=== PATIENT | female | born 1935 ===

== ENCOUNTER 2022-08-21 07:52 | Inpatient (IN) ==
[2022-08-21] MEDS ORDERED: Albuterol/Ipratropium NEB.SOL (2.5/0.5 MG) 3 ML NEB.SOLN INH ONE (08:29)
[2022-08-21 08:50] LABS: ABS Eosinophils 0.1 10^3/ul (0-0.6); ABS Lymphocytes 0.8 10^3/ul (1.0-4.8); ABS Monocytes 0.5 10^3/ul (0-0.8); ABS Neutrophils 6.8 10^3/ul (1.5-7.7); Hematocrit 41 % (35-47); Hemoglobin 12.8 g/dL (12.0-16.0); Lymphocyte % 9.8 %; Mean Corpuscular HGB Conc 32 g/dL (31-36); Mean Corpuscular Hemoglobin 29 pg (27-31); Mean Corpuscular Volume 90 fL (80-97); Mean Platelet Volume 7.9 fL (7.4-10.4); Platelet Count 272 10^3/uL (150-450); Red Blood Count 4.48 10^6 /uL (3.70-4.87); Red Cell Distribution Width 16 % (10-15); White Blood Count 8.2 10^3/uL (3.5-10.8)
[2022-08-21] MEDS ORDERED: cefTRIAXone 1 gm/50 mL D5W 1 GM/50 ML BAG IV ONE (08:57)
[2022-08-21 09:02] LABS: INR 3.23 (0.88-1.18)
[2022-08-21 09:20] LABS: Albumin 4.1 g/dL (3.2-5.2); Albumin/Globulin Ratio 1.3 (1-3); C Reactive Protein 44.34 mg/L (<8.01); Calcium 9.2 mg/dL (8.6-10.3); Creatinine, Serum 0.95 mg/dL (0.51-0.95); Globulin 3.1 g/dL (2-4); Magnesium 1.9 mg/dL (1.9-2.7); Phosphorus 3.3 mg/dL (2.5-5.0); Potassium 3.9 mmol/L (3.5-5.0); Total Bilirubin 0.5 mg/dL (0.2-1.0); Total Protein 7.2 g/dL (6.4-8.9)
[2022-08-21] MEDS ORDERED: Nitro 2% OINT (Nitroglycerin) 1 INCH/PAK TOPICAL ONE (10:05)
[2022-08-21 10:11] LABS: High Sensitivity Troponin 1 Hr 10 pg/mL (<15)
[2022-08-21 11:26] LABS: Urine Appearance Clear; Urine Bilirubin Negative (Negative); Urine Blood Negative (Negative); Urine Color Straw; Urine Glucose Negative (Negative); Urine Ketones Negative (Negative); Urine Nitrite Negative (Negative); Urine Protein Negative (Negative); Urine Specific Gravity 1.008 (1.002-1.030); Urine Urobilinogen Negative (Negative)
[2022-08-21] MEDS ORDERED: Albuterol HFA INHALER 8 gm MDI INH PRN (13:21)
[2022-08-21] MEDS ORDERED: Warfarin per PHARMACY **NOTE FOLLOW UP SCH (14:00)
[2022-08-21] MEDS ORDERED: Warfarin DAILY REMINDER **NOTE FOLLOW UP SCH (17:00)
[2022-08-21] MEDS ORDERED: Warfarin - No Order Today **NOTE FOLLOW UP ONE (17:00)
[2022-08-22 06:05] LABS: ABS Eosinophils 0.2 10^3/ul (0-0.6); ABS Lymphocytes 1.6 10^3/ul (1.0-4.8); ABS Monocytes 0.6 10^3/ul (0-0.8); ABS Neutrophils 3.6 10^3/ul (1.5-7.7); Eosinophil % 4.1 %; Hematocrit 37 % (35-47); Hemoglobin 11.6 g/dL (12.0-16.0); Lymphocyte % 26.4 %; Mean Corpuscular HGB Conc 31 g/dL (31-36); Mean Corpuscular Hemoglobin 29 pg (27-31); Mean Corpuscular Volume 91 fL (80-97); Mean Platelet Volume 7.5 fL (7.4-10.4); Nucleated Red Blood Cells % 0.1; Platelet Count 218 10^3/uL (150-450); Red Blood Count 4.06 10^6 /uL (3.70-4.87); Red Cell Distribution Width 16 % (10-15)
[2022-08-22 06:18] LABS: INR 3.4 (0.88-1.18)
[2022-08-22 06:44] LABS: Blood Urea Nitrogen 18 mg/dL (6-24); CO2 Carbon Dioxide 26 mmol/L (22-32); Calcium 8.3 mg/dL (8.6-10.3); Chloride 106 mmol/L (101-111); Creatinine, Serum 0.89 mg/dL (0.51-0.95); Glucose 105 mg/dL (70-100); Magnesium 1.9 mg/dL (1.9-2.7); Sodium 138 mmol/L (135-145); eGFR CKD-EPI 62.7 (>60)
[2022-08-22 06:54] LABS: Anion Gap 6 mmol/L (2-11)
[2022-08-22] MEDS: Multivitamins/Minerals TAB PO SCH (08:33)
[2022-08-22] MEDS ORDERED: Magnesium Sulfate IV 1GM/100ML 1 GM/100 ML BAG IV ONE (10:57)
[2022-08-22] MEDS ORDERED: Digoxin IV 0.5 MG/2 ML AMP (0.25 MG/ML) IV SLOW PU ONE ×2 (14:28→20:22)
[2022-08-22] MEDS ORDERED: Potassium Chloride LIQUID 20 MEQ/15 ML LIQUID PO ONE (14:50)
[2022-08-22] MEDS ORDERED: Warfarin - No Order Today **NOTE FOLLOW UP ONE (17:00)
[2022-08-23 06:22] LABS: INR 2.19 (0.88-1.18)
[2022-08-23] MEDS: Multivitamins/Minerals TAB PO SCH (08:11)
[2022-08-23] MEDS ORDERED: Digoxin IV 0.5 MG/2 ML AMP (0.25 MG/ML) IV SLOW PU ONE ×2 (08:34→13:00)
[2022-08-23] MEDS: Enoxaparin 100 MG/ML SYR SUBCUT SCH ×2 (12:37→22:48)
[2022-08-24 05:41] LABS: INR 1.77 (0.88-1.18)
[2022-08-24 05:58] LABS: Calcium 8.4 mg/dL (8.6-10.3); Creatinine, Serum 1.05 mg/dL (0.51-0.95); Potassium 3.4 mmol/L (3.5-5.0); eGFR CKD-EPI 51.4 (>60)
[2022-08-24] MEDS ORDERED: Potassium Chlor 20 meq TAB.ER PO ONE (08:07)
[2022-08-24] MEDS: Multivitamins/Minerals TAB PO SCH (09:15)
[2022-08-24] MEDS: PAIN RELIEVING RUB (MENTHOL/SALICYLATE) 1 APPLIC TUBE TOPICAL PRN ×2 (09:15→20:58)
[2022-08-24] MEDS ORDERED: Digoxin IV 0.5 MG/2 ML AMP (0.25 MG/ML) IV SLOW PU ONE (10:09)
[2022-08-24] MEDS: Enoxaparin 100 MG/ML SYR SUBCUT SCH ×2 (10:44→23:14)
[2022-08-24] MEDS: Pilocarpine 2% OPTH.SOL 15 ML BTL RIGHT EYE SCH ×2 (15:35→20:53)
[2022-08-24] MEDS: TAFLUPROST 0.0015% BOTH EYES SCH (20:57)
[2022-08-24] MEDS ORDERED: Polyethylene Glycol 3350 17 GM PACKET PO PRN (22:42)
[2022-08-25 06:26] LABS: ABS Basophils 0.1 10^3/ul (0-0.2); ABS Eosinophils 0.1 10^3/ul (0-0.6); ABS Lymphocytes 1.5 10^3/ul (1.0-4.8); ABS Neutrophils 6.4 10^3/ul (1.5-7.7); Eosinophil % 1.1 %; Hematocrit 38 % (35-47); Hemoglobin 12.3 g/dL (12.0-16.0); Lymphocyte % 16.1 %; Mean Corpuscular HGB Conc 32 g/dL (31-36); Mean Corpuscular Hemoglobin 29 pg (27-31); Mean Corpuscular Volume 89 fL (80-97); Mean Platelet Volume 7.8 fL (7.4-10.4); Platelet Count 273 10^3/uL (150-450); Red Blood Count 4.27 10^6 /uL (3.70-4.87); Red Cell Distribution Width 15 % (10-15)
[2022-08-25 06:34] LABS: INR 1.49 (0.88-1.18)
[2022-08-25 06:44] LABS: Calcium 8.6 mg/dL (8.6-10.3); Creatinine, Serum 0.98 mg/dL (0.51-0.95); Potassium 3.8 mmol/L (3.5-5.0); eGFR CKD-EPI 55.9 (>60)
[2022-08-25] MEDS ORDERED: Midazolam 5 mg/5 ml VIAL 1 mg/ml 5 ml VIAL (5 mg) ONE (08:48)
[2022-08-25] MEDS ORDERED: fentaNYL 100 mcg/2 ml 50 MCG/ML VIAL ONE (08:48)
[2022-08-25] MEDS ORDERED: Lidocaine 1% MPF 5 ML VIAL ONE (08:49)
[2022-08-25] MEDS ORDERED: VERAPAMIL 2.5 MG/ML 2 ML VIAL ** 5 mg/2 ml ONE (08:49)
[2022-08-25] MEDS ORDERED: nitroGLYCERIN DRIP 25,000 MCG/250 ML BTL ONE (08:49)
[2022-08-25] MEDS ORDERED: Heparin 1,000 UNIT/ML 10 ml (10,000 UNITS) CATHLAB/DIALYSIS ONE (08:49)
[2022-08-25] MEDS ORDERED: Heparin 2 UNITS/ML 1000 mls 2,000 ML IV ONE (08:49)
[2022-08-25] MEDS ORDERED: Iohexol 350 (CONTRAST) 100 ML PAK IV ONE (08:50)
[2022-08-25] MEDS ORDERED: niCARdipine 0.1MG/ML IVPREMIX 20 MG/200 ML BAG IV ONE (08:51)
[2022-08-25 09:48] LABS: POC SO2 54 %
[2022-08-25 09:48] LABS: POC SO2 94 %
[2022-08-25] MEDS: Pilocarpine 2% OPTH.SOL 15 ML BTL RIGHT EYE SCH ×3 (11:36→20:42)
[2022-08-25] MEDS: Enoxaparin 100 MG/ML SYR SUBCUT SCH (12:55)
[2022-08-25] MEDS: PAIN RELIEVING RUB (MENTHOL/SALICYLATE) 1 APPLIC TUBE TOPICAL PRN (13:04)
[2022-08-25] MEDS: Multivitamins/Minerals TAB PO SCH (13:07)
[2022-08-25] MEDS ORDERED: Warfarin per PHARMACY **NOTE FOLLOW UP SCH (18:00)
[2022-08-25] MEDS: TAFLUPROST 0.0015% BOTH EYES SCH (20:43)
[2022-08-26 06:46] LABS: ABS Basophils 0.1 10^3/ul (0-0.2); ABS Lymphocytes 1.2 10^3/ul (1.0-4.8); ABS Monocytes 1.1 10^3/ul (0-0.8); ABS Neutrophils 6.6 10^3/ul (1.5-7.7); Eosinophil % 0.4 %; Hematocrit 37 % (35-47); Hemoglobin 11.7 g/dL (12.0-16.0); Mean Corpuscular HGB Conc 32 g/dL (31-36); Mean Corpuscular Hemoglobin 29 pg (27-31); Mean Corpuscular Volume 89 fL (80-97); Mean Platelet Volume 7.9 fL (7.4-10.4); Platelet Count 277 10^3/uL (150-450); Red Blood Count 4.11 10^6 /uL (3.70-4.87); Red Cell Distribution Width 15 % (10-15)
[2022-08-26 06:50] LABS: INR 1.46 (0.88-1.18)
[2022-08-26 07:25] LABS: Calcium 8.4 mg/dL (8.6-10.3); Creatinine, Serum 1.12 mg/dL (0.51-0.95); Potassium 3.6 mmol/L (3.5-5.0); eGFR CKD-EPI 47.6 (>60)
[2022-08-26] MEDS ORDERED: Potassium Chlor 20 meq TAB.ER PO ONE (08:00)
[2022-08-26] MEDS ORDERED: Lidocaine 2% PF 5 ML VIAL INJ ONE (10:59)
[2022-08-26] MEDS: Multivitamins/Minerals TAB PO SCH (12:50)
[2022-08-26] MEDS: Pilocarpine 2% OPTH.SOL 15 ML BTL RIGHT EYE SCH ×3 (12:58→20:17)
[2022-08-26] MEDS ORDERED: Potassium Chlor 10 meq TAB PO ONE (13:00)
[2022-08-26] MEDS ORDERED: Warfarin DAILY REMINDER **NOTE FOLLOW UP SCH (17:00)
[2022-08-26] MEDS: TAFLUPROST 0.0015% BOTH EYES SCH (20:17)
[2022-08-27 05:33] LABS: ABS Basophils 0.1 10^3/ul (0-0.2); ABS Eosinophils 0.1 10^3/ul (0-0.6); ABS Lymphocytes 1.2 10^3/ul (1.0-4.8); ABS Monocytes 0.8 10^3/ul (0-0.8); ABS Neutrophils 5.2 10^3/ul (1.5-7.7); Hematocrit 38 % (35-47); Hemoglobin 12.1 g/dL (12.0-16.0); Lymphocyte % 16.6 %; Mean Corpuscular HGB Conc 32 g/dL (31-36); Mean Corpuscular Hemoglobin 29 pg (27-31); Mean Corpuscular Volume 89 fL (80-97); Mean Platelet Volume 7.8 fL (7.4-10.4); Platelet Count 280 10^3/uL (150-450); Red Cell Distribution Width 16 % (10-15); White Blood Count 7.5 10^3/uL (3.5-10.8)
[2022-08-27 05:39] LABS: INR 1.67 (0.88-1.18)
[2022-08-27 06:14] LABS: Calcium 8.3 mg/dL (8.6-10.3); Creatinine, Serum 1.09 mg/dL (0.51-0.95); Magnesium 2.2 mg/dL (1.9-2.7); Potassium 3.8 mmol/L (3.5-5.0); eGFR CKD-EPI 49.2 (>60)
[2022-08-27] MEDS: Multivitamins/Minerals TAB PO SCH (09:03)
[2022-08-27] MEDS: Pilocarpine 2% OPTH.SOL 15 ML BTL RIGHT EYE SCH (09:04)
[2022-08-27 11:56] VITALS: BP 125/68
[2022-08-29 15:15] LABS: C Reactive Protein 182.5 mg/L (<8.01); Uric Acid 6.6 mg/dL (2.3-6.6)
== END 2022-08-27 14:35 | disposition home or self-care (01) | DRG 286 ==
LOC: EDHOLD 07:52 → ED 07:52 → EDHOLD 12:54 → MEDTELE 13:48 → SUATTDRO 08-22 14:32
PROVIDERS: ADMIT Internal Medicine; ATTEND Internal Medicine